=== PATIENT | male | born 1980 | race Caucasian/White ===

== ENCOUNTER 2021-09-22 21:41 | Emergency (ER) | payer BC ==
[~2021-09-22] VITALS: Ht 170.2 cm; Wt 74.4 kg
[2021-09-22] MEDS ORDERED: TDAP [DIPH/PERTUSSIS/TET] 0.5 ML VIAL IM ONE ×2 (22:00→22:01)
[2021-09-22] MEDS ORDERED: LIDOCAINE HCL/PF 1% 30 ML VIAL TP ONE (22:00)
[2021-09-22] MEDS ORDERED: SULF1TAB48 PO (23:01)
--- NOTE | 2021-09-22 23:06 | NUR ---
Patient discharged to home in stable condition. Written and verbal after care instructions given. Patient verbalizes understanding of instruction.
[2021-09-22 23:15] VITALS: BP 134/61
== END 2021-09-22 23:24 | disposition home or self-care (01) ==
LOC: ER 21:51
DX: S61.211A Laceration without foreign body of left index finger without damage to nail, initial encounter (principal); W26.0XXA Contact with knife, initial encounter; Y93.89 Activity, other specified; Y92.89 Other specified places as the place of occurrence of the external cause; Y99.8 Other external cause status
CPT/HCPCS: 99283; 12001; 90471; 90715; J3490; A6403

== ENCOUNTER 2021-09-25 11:03 | Emergency (ER) | payer BC ==
[~2021-09-25] VITALS: Ht 175.3 cm; Wt 81.6 kg
[~2021-09-25 11:03] MED LIST: SULF1TAB48 PO
[2021-09-25 11:06] VITALS: BP 116/74
== END 2021-09-25 12:25 | disposition home or self-care (01) ==
LOC: ER 11:08
DX: S61.211D Laceration without foreign body of left index finger without damage to nail, subsequent encounter (principal); X58.XXXD Exposure to other specified factors, subsequent encounter